=== PATIENT | male | born 1955 | race Caucasian/White ===

== ENCOUNTER 2017-02-13 22:01 | Emergency (ER) | payer OTHER ==
[~2017-02-13] VITALS: Ht 182.9 cm; Wt 110.0 kg
[2017-02-13 22:04] VITALS: BP 165/86; PULSE 81; RESP 16; TEMP 99.8; O2SAT 97
--- NOTE | 2017-02-13 22:33 | PD ---
HPI Chief Complaint: Fever Time Seen by Provider: 22:33 Travel History International Travel<30 days: No Contact w/Intl Traveler<30days: No Traveled to known affect area: No History of Present Illness HPI The patient 61 years old. He arrives to the ER by private vehicle. 20 days ago he underwent aortic valve replacement at the [facility] [place]. Today he developed a temperature of 100.5. He notes chest pain with maximum inspiratory volume. He denies a cough however at time of examination an occasional very mild cough is audible. Patient states he is on Coumadin and most recent INR 1.7. He takes for atrial fibrillation. Severity of pain is very mild. There is no radiation. Valve was porcine valve. PFSH Past Medical History Asthma: No Autoimmune Disease: No Blood Disorders: No Cancer: No Cardiovascular Problems: No Chemotherapy: No COPD: No Diabetes: No Endocrine: No Genitourinary: No Hypertension: Yes Immune Disorder: No Musculoskeletal: No Neurologic: No Psychiatric: No Respiratory: Yes (HAD SLEEP APNEA PRIOR TO SURGERY) Radiation Therapy: No Sleep Apnea: No Thyroid Disease: No Past Surgical History Abdominal Surgery: Yes ([id number]) AICD: No Cardiac Surgery: Yes (AORTIC VALVE REPLACEMENT) Ear Surgery: No Endocrine Surgery: No Eye Surgery: Yes (LASIK SURGERY) Genitourinary Surgery: No Gynecologic Surgery: Yes (VASECTOMY 1977) Joint Replacement: No Oral Surgery: Yes (TONSILECTOMY UVULA PALETAL PHARYGEALPLASTY ) Pacemaker: No Thoracic Surgery: No Other Surgery: Yes Social History Alcohol Use: Yes (OCCASSIONAL ) Tobacco Use: No Substance Use: No Allergies-Medications (Allergen,Severity, Reaction): Coded Allergies: Actifed (Verified Allergy, Severe, 02/13/17) Reported Meds & Prescriptions Reported Meds & Active Scripts Active Reported Aspirin EC (Aspirin) 81 Mg Tabdr 81 Mg PO DAILY Pravastatin 40 Mg Tab 40 Mg PO HS Coreg (Carvedilol) 6.25 Mg Tab 6.25 Mg PO BID Vitamin D3 (Cholecalciferol) 1,000 Unit Tab 1,000 Units PO DAILY K-Tab (Potassium Chloride) 20 Meq Tab 20 Meq PO DAILY PRN Lasix (Furosemide) 40 Mg Tab 40 Mg PO DAILY PRN Warfarin 7.5 Mg Tab 7.5 Mg PO MOFR IN THE AM Warfarin 5 Mg Tab 5 Mg PO SUTUWETHSA IN THE AM Maxzide (Triamterene/HCTZ) 75-50 Mg Tab 1 Tab PO DAILY Sinemet Cr (Carbidopa-Levodopa ER) 50-200 Mg Tab 1 Tab PO DAILY Review of Systems Except as stated in HPI: all other systems reviewed are Neg General / Constitutional: Positive: Fever Cardiovascular: Positive: Chest Pain or Discomfort Physical Exam Narrative GENERAL: 61 yo M, WNWND, pleasant SKIN: Warm and dry. HEAD: Atraumatic. Normocephalic. EYES: Pupils equal and round. No scleral icterus. No injection or drainage. ENT: No nasal bleeding or discharge. Mucous membranes pink and moist. NECK: Trachea midline. No JVD. CARDIOVASCULAR: Regular rate and rhythm. Midline surgical incision well healed. RESPIRATORY: No accessory muscle use. Clear to auscultation. Breath sounds equal bilaterally. GASTROINTESTINAL: Abdomen soft, non-tender, nondistended. Hepatic and splenic margins not palpable. MUSCULOSKELETAL: Extremities without clubbing, cyanosis, or edema. No obvious deformities. NEUROLOGICAL: Awake and alert. No obvious cranial nerve deficits. Motor grossly within normal limits. Five out of 5 muscle strength in the arms and legs. Normal speech. PSYCHIATRIC: Appropriate mood and affect; insight and judgment normal. Data Data Last Documented VS Vital Signs Date Time Temp Pulse Resp B/P Pulse Ox O2 Delivery O2 Flow Rate FiO2 02/13/17 23:50 99.5 78 20 136/80 95 Room Air VS reviewed Orders Electrocardiogram (02/13/17 22:37) Basic Metabolic Panel (Bmp) (02/13/17 22:37) Ckmb (Isoenzyme) Profile (02/13/17 22:37) Complete Blood Count With Diff (02/13/17 22:37) Magnesium (Mg) (02/13/17 22:37) Prothrombin Time / Inr (Pt) (02/13/17 22:37) Act Partial Throm Time (Ptt) (02/13/17 22:37) Troponin I (02/13/17 22:37) Chest, Single Ap (02/13/17 22:37) Ecg Monitoring (02/13/17 22:37) Iv Access Insert/Monitor (02/13/17 22:37) Oximetry (02/13/17 22:37) Oxygen Administration (02/13/17 22:37) Sodium Chloride 0.9% Flush (Ns Flush) (02/13/17 22:45) CKMB (02/13/17 22:58) CKMB% (02/13/17 22:58) Troponin I (02/14/17 00:01) Azithromycin (Zithromax) (02/14/17 01:30) Labs Laboratory Tests Test 02/13/17 02/14/17 22:58 00:51 White Blood Count 9.2 TH/MM3 Red Blood Count 4.21 MIL/MM3 Hemoglobin 11.5 GM/DL Hematocrit 34.8 % Mean Corpuscular Volume 82.6 FL Mean Corpuscular Hemoglobin 27.4 PG Mean Corpuscular Hemoglobin 33.2 % Concent Red Cell Distribution Width 15.6 % Platelet Count 196 TH/MM3 Mean Platelet Volume 7.5 FL Neutrophils (%) (Auto) 78.1 % Lymphocytes (%) (Auto) 11.7 % Monocytes (%) (Auto) 7.1 % Eosinophils (%) (Auto) 1.8 % Basophils (%) (Auto) 1.3 % Neutrophils # (Auto) 7.2 TH/MM3 Lymphocytes # (Auto) 1.1 TH/MM3 Monocytes # (Auto) 0.7 TH/MM3 Eosinophils # (Auto) 0.2 TH/MM3 Basophils # (Auto) 0.1 TH/MM3 CBC Comment DIFF FINAL Differential Comment Prothrombin Time 20.0 SEC Prothromb Time International 1.8 RATIO Ratio Activated Partial 32.9 SEC Thromboplast Time Sodium Level 139 MEQ/L Potassium Level 3.8 MEQ/L Chloride Level 101 MEQ/L Carbon Dioxide Level 28.5 MEQ/L Anion Gap 10 MEQ/L Blood Urea Nitrogen 24 MG/DL Creatinine 1.16 MG/DL Estimat Glomerular Filtration 64 ML/MIN Rate Random Glucose 147 MG/DL Calcium Level 9.2 MG/DL Magnesium Level 2.1 MG/DL Total Creatine Kinase 113 U/L Creatine Kinase MB 1.6 NG/ML Troponin I 0.03 NG/ML 0.03 NG/ML MDM Medical Decision Making Medical Screen Exam Complete: Yes Emergency Medical Condition: Yes Medical Record Reviewed: Yes Differential Diagnosis NSTEMI, unstable angina, coronary vasospasm, PE, PTX, aortic dissection, pericarditis, myocarditis, endocarditis, PNA, esophageal disease, aneurysm, musculoskeletal etiologies, anxiety, cocaine/sympathomimetic abuse Narrative Course CBC & BMP Diagram 02/13/17 22:58 Tn 0.03 with a delta troponin 0.03 EKG: Afib, rate 84, non-specific wave changes INR 1.8 PTT 32.9 Last 24 hours Impressions Chest X-Ray 02/13/[id number] Signed Impressions: Service Date/Time: Monday, February 13, 2017 22:40 - CONCLUSION: 1. Minimal basilar atelectasis. Elevated left hemidiaphragm. Devin Silva MD Upon reassessment at 145AM the patient is resting comfortably and feels better, is alert and in no distress. The patients results and examination findings were discussed. The repeat examination is unremarkable and benign. The history , exam, diagnostic testing, and current condition do not suggest any significant pathology to warrant further testing, continued ED treatment, admission, or surgical evaluation at this point. The vital signs have been stable. The patient does not have uncontrollable pain, intractable vomiting, or other significant symptoms. The patient's condition is stable and appropriate for discharge. The patient will pursue further outpatient evaluation with a primary care physician or other designated or consulting physician as indicated in the discharge instructions. The patient expressed understanding and was agreeable with this plan. Diagnosis Primary Impression: Chest pain Qualified Code: R07.9 - Chest pain, unspecified type Additional Impression: Fever Qualified Code: R50.9 - Fever, unspecified fever cause Admitting Information Admitting Physician Requests: Observation Referrals: [facility] ON WEDNESDAY Primary Care Physician Additional Instructions: You have a choice when it comes to health care, and we are glad that you chose [facility]. Hopefully, we have met your expectations on today's visit. You are welcome to return to [facility] at any time, as we are committed to meeting the health care needs of our community. Med/Other Pt SpecificInfo: Prescription(s) given Scripts Benzonatate (Tessalon Perles)100 Mg [id number] Mg PO TID PRN (COUGH) #20 CAP Ref 0 Prov:Marko Voss MD 02/14/17 Guaifenesin-Codeine Liq 100-10 Mg/5 Ml Soln10 Ml PO Q6H PRN (COUGH) 5 Days Ref 0 Prov:Marko Voss MD 02/14/17 Azithromycin 250 Mg [id number] Mg PO DAILY #4 TAB Ref 0 Prov:Marko Voss MD 02/14/17 Disposition: 01 DISCHARGE HOME Condition: Stable Marko Voss MD February 13, 2017 22:33
[2017-02-13] MEDS ORDERED: SODIUM CHLORIDE 0.9% FLUSH 10 ML FLUSH IVF PRN (22:45)
--- NOTE | 2017-02-13 23:11 | RADRPT ---
EXAM DATE/TIME: 02/13/2017 22:40 [facility] COMPARISON: No previous studies available for comparison. INDICATIONS : Chest pain and fever. MEDICAL HISTORY : Hypertension. SURGICAL HISTORY : CABG. ENCOUNTER: Initial ACUITY: 1 day PAIN SCORE: 8/10 LOCATION: Bilateral chest FINDINGS: A single view of the chest demonstrates median sternotomy. Elevated left hemidiaphragm. Minimal basil ar atelectasis. No effusion. No pneumothorax. CONCLUSION: 1. Minimal basilar atelectasis. Elevated left hemidiaphragm. Devin Silva MD on February 13, 2017 at 23:08 Board Certified Radiologist. This report was verified electronically.
[2017-02-13] MEDS ORDERED: WARF-21 PO (23:22)
[2017-02-13] MEDS ORDERED: FURO1TAB60 PO (23:22)
[2017-02-13] MEDS ORDERED: WARF-23 PO (23:22)
[2017-02-13] MEDS ORDERED: SINE50TA PO (23:22)
[2017-02-13] MEDS ORDERED: MAXZ PO (23:22)
[2017-02-13] MEDS ORDERED: POTA1TAB4 PO (23:22)
[2017-02-13] MEDS ORDERED: ASPI81TA11 PO (23:25)
[2017-02-13] MEDS ORDERED: PRAV40TA2 PO (23:25)
[2017-02-13] MEDS ORDERED: VITA100018 PO (23:25)
[2017-02-13] MEDS ORDERED: CARV6.25 PO (23:25)
[2017-02-13 23:28] LABS: AUTOMATED NEUTROPHIL # 7.2 TH/MM3 (1.8-7.7); BASOPHIL # 0.1 TH/MM3 (0-0.2); BASOPHIL % 1.3 % (0.0-2.0); EOSINOPHIL # 0.2 TH/MM3 (0-0.4); EOSINOPHIL % 1.8 % (0.0-4.0); HEMATOCRIT 34.8 % (39.0-51.0); HEMO FLAGS DIFF FINAL; LYMPH % 11.7 % (9.0-44.0); LYMPHOCYTE # 1.1 TH/MM3 (1.0-4.8); MEAN CELL VOLUME 82.6 FL (80.0-100.0); MEAN CORPUSCULAR HEMOGLOBIN 27.4 PG (27.0-34.0); MEAN CORPUSCULAR HGB CONC 33.2 % (32.0-36.0); MONO % 7.1 % (0.0-8.0); NEUT % 78.1 % (16.0-70.0); PLATELET COUNT 196 TH/MM3 (150-450); RED BLOOD COUNT 4.21 MIL/MM3 (4.50-5.90); RED CELL DISTRIBUTION WIDTH 15.6 % (11.6-17.2); WHITE BLOOD COUNT 9.2 TH/MM3 (4.0-11.0)
[2017-02-13 23:37] LABS: APTT (PATIENT) 32.9 SEC (24.3-30.1); INTERNATIONAL NORMALIZED RATIO 1.8 RATIO
[2017-02-13 23:41] LABS: ANION GAP 10 MEQ/L (5-15); BICARBONATE 28.5 MEQ/L (21.0-32.0); BLOOD UREA NITROGEN 24 MG/DL (7-18); CHLORIDE 101 MEQ/L (98-107); GLOMERULAR FILTRATION RATE 64 ML/MIN (>89); MAGNESIUM 2.1 MG/DL (1.5-2.5); POTASSIUM 3.8 MEQ/L (3.5-5.1); SODIUM (NA) 139 MEQ/L (136-145)
[2017-02-13 23:44] LABS: CREATINE KINASE 113 U/L (39-308)
[2017-02-13 23:50] VITALS: BP 136/80; PULSE 78; RESP 20; TEMP 99.5; O2SAT 95
[2017-02-13 23:57] LABS: CKMB 1.6 NG/ML (0.5-3.6)
[2017-02-14] MEDS ORDERED: AZITHROMYCIN 250 MG TAB PO ONE (01:30)
[2017-02-14] MEDS ORDERED: BENZ100 PO (01:54)
[2017-02-14] MEDS ORDERED: AZIT250T3 PO (01:54)
[2017-02-14] MEDS ORDERED: GUAI100S5 PO (01:54)
[2017-02-14 02:09] VITALS: BP 130/75; TEMP 99.3
--- NOTE | 2017-02-15 13:03 | EKG ---
Date Performed: 02/13/2017 Time Performed: 22:47:41 PTAGE: 61 years EKG: ATRIAL FIBRILLATION NONSPECIFIC T-WAVE ABNORMALITY ABNORMAL ECG NO PRIOR TRACING DOCTOR: César Jonas Interpretating Date/Time 02/15/2017 13:01:32
== END 2017-02-14 02:10 | disposition home or self-care (01) ==
LOC: NEPC 22:01
DX: R07.9 Chest pain, unspecified (principal); R50.9 Fever, unspecified; R05 Cough; R94.31 Abnormal electrocardiogram [ECG] [EKG]; I10 Essential (primary) hypertension; I48.91 Unspecified atrial fibrillation; Z79.01 Long term (current) use of anticoagulants; Z98.890 Other specified postprocedural states
CPT/HCPCS: 71010; 80048; 82550; 82552; 83735; 84484; 85025; 85610; 85730; 93005